=== PATIENT | female | born 1975 ===

== ENCOUNTER 2019-02-13 10:15 | Outpatient (CLI) | payer OTHER | END 2019-02-13 10:17 | disposition home or self-care (01) | LOC: SONOGRAMA 10:15 | DX: E04.1 Nontoxic single thyroid nodule (principal) ==

== ENCOUNTER 2019-07-10 08:12 | Outpatient (CLI) | payer OTHER | END 2019-07-12 06:23 | disposition home or self-care (01) | LOC: RX STUDY 08:12 | DX: R13.13 Dysphagia, pharyngeal phase (principal) ==

== ENCOUNTER 2023-04-08 10:55 | Outpatient (CLI) | payer OTHER | END 2023-04-08 10:59 | disposition home or self-care (01) | LOC: SONOGRAMA 10:55 | PROVIDERS: ATTEND Pathology Anatomic Pathology & Clinical Pathology | DX: D34 Benign neoplasm of thyroid gland (principal); D44.0 Neoplasm of uncertain behavior of thyroid gland; E07.9 Disorder of thyroid, unspecified ==

== ENCOUNTER 2023-06-03 08:24 | Outpatient (CLI) | payer OTHER | END 2023-06-03 08:25 | disposition home or self-care (01) | LOC: NUCLEAR 08:24 | PROVIDERS: ATTEND Internal Medicine Hematology & Oncology | DX: C73 Malignant neoplasm of thyroid gland (principal); E06.3 Autoimmune thyroiditis; E04.2 Nontoxic multinodular goiter ==